=== PATIENT | male | born 1985 ===

== ENCOUNTER 2018-06-14 19:37 | Emergency (ER) | payer OTHER ==
[~2018-06-14] VITALS: Ht 193 cm; Wt 99.8 kg
[2018-06-14 20:07] LABS: *BILIRUBIN,URIN NEGATIVE (NEGATIVE); *BLOOD, URINE Trace-intact (NEGATIVE); *CLARITY,URINE SLIGHTLY CLOUDY (CLEAR); *COLOR,URINE YELLOW (YELLOW); *KETONES,URINE 1+ (NEGATIVE); *UROBILINOGEN,URINE 0.2 E.U./dl (NORMAL); LEUKOCYTE ESTERASE ,URINE NEGATIVE (NEGATIVE); NITRITE, URINE NEGATIVE (NEGATIVE); UGLUCOSE NEGATIVE (NEGATIVE)
[2018-06-14] MEDS ORDERED: KETOROLAC TROMETHAMINE 30 MG INJ ONE (20:08)
[2018-06-14] MEDS ORDERED: ONDANSETRON 4 MG/2 ML VIAL ONE (20:09)
[2018-06-14] MEDS ORDERED: HYDROMORPHONE 1 MG/1 ML DISP.SYRIN ONE (20:09)
[2018-06-14 20:13] LABS: BACTERIA,URINE NONE SEEN /HPF (NONE SEEN); RBC,URINE 0-3 /HPF (0-3); SQUAMOUS EPITHELIAL CELL,UR FEW /HPF (NONE SEEN); WBC,URINE 0-3 /HPF (0-3)
--- NOTE | 2018-06-14 20:15 | NUR ---
Pt. presents to ED w/ c/o 01/31 R flank pain x 6 days, per pt. "I was diagnosed w/ kidney stones in [facility] last weekend", reports some nausea, no vomiting, Dr. Rasheed at bedside for MSE, urine specimen collected and sent to lab, pt. down to CT,
[2018-06-14] MEDS: HYDROMORPHONE 1 MG/1 ML DISP.SYRIN IV ONE (20:22)
[2018-06-14] MEDS: ONDANSETRON IV *ER 4 MG/2 ML VIAL IV ONE (20:23)
[2018-06-14] MEDS: KETOROLAC TROMETHAMINE 30 MG INJ IVP ONE (20:23)
--- NOTE | 2018-06-14 21:23 | NUR ---
Patient discharged to home in stable conditon. Written and verbal after care instructions given. Patient verbalizes understanding of instructions. Pt. d/c w/ prescription per MD order, signed d/c papers, all belongings w/ pt., IV/ID band removed, left w/ steady gait w/ gf/ left in private vehicle,
== END 2018-06-14 21:27 | disposition home or self-care (01) ==
LOC: ER 19:39
DX: N20.0 Calculus of kidney (principal); N13.9 Obstructive and reflux uropathy, unspecified
CPT/HCPCS: 74176; 81001; 96374; 96375; 99284; J1170; J1885; J2405; A4663